=== PATIENT | female | born 1965 | race Caucasian/White ===

== ENCOUNTER 2017-11-13 10:45 | Outpatient (CLI) | payer BC | END 2017-11-13 10:46 | disposition home or self-care (01) | LOC: BICULT 10:45 | PROVIDERS: ATTEND Family Medicine | DX: R10.2 Pelvic and perineal pain (principal); R93.8 Abnormal findings on diagnostic imaging of other specified body structures | CPT/HCPCS: 76856 ==

== ENCOUNTER 2018-02-17 14:42 | Outpatient (CLI) | payer BC ==
--- NOTE | 2018-02-17 15:40 | RAD ---
LEFT HEEL TWO VIEWS: History: Pain in the left heel, plantar fascitis. FINDINGS/IMPRESSION: The calcaneus appears intact. There is a tiny plantar calcaneal spur. POS: [facility]
== END 2018-02-17 14:43 | disposition home or self-care (01) ==
LOC: SCSRAD 14:42
PROVIDERS: ATTEND Nurse Practitioner Family
DX: M79.672 Pain in left foot (principal); M77.32 Calcaneal spur, left foot

== ENCOUNTER 2018-05-13 13:23 | Outpatient (CLI) | payer BC | END 2018-05-13 13:24 | disposition home or self-care (01) | LOC: BICMAMMO 13:23 | PROVIDERS: ATTEND Student in an Organized Health Care Education/Training Program | DX: Z12.31 Encounter for screening mammogram for malignant neoplasm of breast (principal); Z80.3 Family history of malignant neoplasm of breast | CPT/HCPCS: 77063; 77067 ==

== ENCOUNTER 2018-11-18 16:54 | Outpatient (CLI) | payer BC ==
--- NOTE | 2018-11-18 19:01 | RAD ---
3 VIEW LEFT WRIST: Date: 11/18/18 INDICATION: Left wrist pain. FINDINGS: Mild osteophytosis left wrist present. No fracture or dislocation. IMPRESSION: No acute osseous abnormality of left wrist. POS: [facility]
== END 2018-11-18 16:55 | disposition home or self-care (01) ==
LOC: SCSRAD 16:54
PROVIDERS: ATTEND Nurse Practitioner Family
DX: M25.532 Pain in left wrist (principal)